=== PATIENT | female | born 1985 | race African-American/Black ===

== ENCOUNTER 2023-08-18 09:39 | Emergency (ER) | payer OTHER ==
[~2023-08-18] VITALS: Ht 170.2 cm; Wt 99.8 kg
[2023-08-18 09:42] VITALS: BP 134/80; PULSE 90; RESP 18; TEMP 97.4; O2SAT 100
[2023-08-18] MEDS ORDERED: OXYM15SP72 NS (11:23)
[2023-08-18] MEDS ORDERED: IBUP-2218 PO (11:23)
[2023-08-18] MEDS ORDERED: BENZ-300 PO (11:23)
[2023-08-18 11:28] VITALS: BP 128/82; PULSE 88; RESP 16; TEMP 98; O2SAT 100
[2023-08-18 12:02] LABS: FLU A ANTIGEN negative (NEGATIVE); FLU B ANTIGEN negative (NEGATIVE)
== END 2023-08-18 11:28 | disposition home or self-care (01) ==
LOC: MED 09:39
DX: B34.9 Viral infection, unspecified (principal); Z20.822 Contact with and (suspected) exposure to COVID-19; Z79.899 Other long term (current) drug therapy
CPT/HCPCS: 87081; 99283

== ENCOUNTER 2023-09-07 07:57 | Emergency (ER) | payer OTHER ==
[~2023-09-07] VITALS: Ht 170.2 cm; Wt 99.8 kg
[~2023-09-07 07:57] MED LIST: BENZ-300 PO; IBUP-2218 PO; OXYM15SP72 NS
[2023-09-07 08:09] VITALS: BP 137/87; PULSE 94; RESP 18; TEMP 98.2; O2SAT 100
[2023-09-07 08:15] VITALS: BP 137/87; PULSE 94; RESP 18; O2SAT 100
[2023-09-07] MEDS ORDERED: AMOX1TAB8 PO (08:34)
[2023-09-07] MEDS: DEXAMETHASONE 10 MG/ML VIAL IM ONE (08:52)
== END 2023-09-07 09:00 | disposition home or self-care (01) ==
LOC: MED 07:57
DX: J02.8 Acute pharyngitis due to other specified organisms (principal); Z79.1 Long term (current) use of non-steroidal anti-inflammatories (NSAID); Z79.899 Other long term (current) drug therapy
CPT/HCPCS: 96372; 99283; J1100